=== PATIENT | female | born 1960 | race Caucasian/White ===

== ENCOUNTER 2025-05-25 15:05 | Emergency (ER) | payer BC, MEDICAID ==
[~2025-05-25] VITALS: Ht 177.8 cm; Wt 56.7 kg
[2025-05-25 15:35] LABS: PLATELET COUNT (AUTO) 248 K/uL (179-408); RED BLOOD CELL COUNT(AUTO) 3.97 MIL/uL (3.63-4.92); RED CELL DISTRIBUTION WIDTH 14.1 % (12.3-17.7); WHITE BLOOD COUNT (AUTO) 6.0 K/uL (3.8-11.8)
[2025-05-25 15:42] LABS: CREATININE 0.5 mg/dL (0.6-1.3); SODIUM SERUM 145.0 mmol/L (136-145); UREA NITROGEN, BLOOD 21.0 mg/dL (7-18)
[2025-05-25 15:47] LABS: ETHANOL < 3 MG/DL (0-10)
[2025-05-25 15:48] LABS: ASPARTATE AMINOTRANSFERASE 10.0 U/L (15-37); TOTAL PROTEIN, SERUM 6.6 g/dL (6.4-8.2)
[2025-05-25 15:51] LABS: *BILIRUBIN,URIN NEGATIVE (NEGATIVE); *BLOOD, URINE TRACE (NEGATIVE); *CLARITY,URINE CLEAR (CLEAR); *COLOR,URINE YELLOW (YELLOW); *KETONES,URINE TRACE (NEGATIVE); *PROTEIN,URINE NEGATIVE (NEGATIVE); *UROBILINOGEN,URINE 0.2 E.U./dl (NORMAL); LEUKOCYTE ESTERASE ,URINE NEGATIVE (NEGATIVE); NITRITE, URINE NEGATIVE (NEGATIVE); UGLUCOSE NEGATIVE (NEGATIVE)
[2025-05-25] MEDS: LORAZEPAM 0.5 MG TABLET PO ONE (15:53)
[2025-05-25] MEDS ORDERED: LORAZEPAM 1 MG TABLET ONE (15:53)
[2025-05-25 16:01] LABS: *AMPHETAMINE, URINE NEGATIVE (NEGATIVE); *BARBITURATE, URINE NEGATIVE (NEGATIVE); *BENZODIAZEPINE, URINE NEGATIVE (NEGATIVE); *CANNABINOID, URINE NEGATIVE (NEGATIVE); *COCCAINE, URINE NEGATIVE (NEGATIVE); *OPIATE, URINE NEGATIVE (NEGATIVE); *PHENCYCLIDINE SCREEN,URINE NEGATIVE (NEGATIVE); FENTANYL, URINE NEGATIVE (NEGATIVE)
[2025-05-25 16:03] LABS: SQUAMOUS EPITHELIAL CELL,UR FEW /HPF (NONE SEEN)
[2025-05-25 16:04] LABS: CALCIUM OXALATE CRYSTALS,UR FEW /HPF (NONE SEEN)
[2025-05-25] MEDS ORDERED: HALOPERIDOL LACTATE 5 MG/1 ML VIAL ONE (19:04)
[2025-05-25] MEDS: HALOPERIDOL LACTATE 5 MG/1 ML VIAL IM ONE (19:09)
[2025-05-25] MEDS ORDERED: ACETAMINOPHEN 325 MG TABLET PO PRN (21:00)
[2025-05-25] MEDS ORDERED: LORAZEPAM 0.5 MG TABLET PO PRN (21:00)
[2025-05-25] MEDS ORDERED: ZOLPIDEM 5 MG TABLET PO PRN (21:00)
[2025-05-25] MEDS ORDERED: MAGNESIUM HYDROXIDE 30 ML LIQUID UDC PO PRN (21:00)
[2025-05-25] MEDS ORDERED: ONDANSETRON 4 MG/2 ML VIAL IV PRN (21:00)
[2025-05-25 21:25] VITALS: BP 127/72; TEMP 98; O2SAT 99
[2025-05-26] MEDS ORDERED: PANTOPRAZOLE SODIUM 40 MG TABLET.DR PO SCH (07:00)
== END 2025-05-25 21:26 ==
LOC: ER 15:05 → UNDOADMIN 20:27 → MEDSURG3 20:27 → ER 21:26
DX: R47.81 Slurred speech (principal); R62.7 Adult failure to thrive; E78.5 Hyperlipidemia, unspecified; F03.C2 Unspecified dementia, severe, with psychotic disturbance; I10 Essential (primary) hypertension; Z20.822 Contact with and (suspected) exposure to COVID-19; Z79.899 Other long term (current) drug therapy
CPT/HCPCS: 80076; 80048; 81001; 84443; 85025; 87426; 36415; 93005; 99285; 96372; 80320; 80307; J1630; A4606; A4663; G0480